=== PATIENT | male | born 1960 | race Caucasian/White ===

== ENCOUNTER → 2023-05-26 | Outpatient (CLI) | payer OTHER | END | disposition home or self-care (01) | LOC: WOUNDCARE 11:06 | PROVIDERS: ATTEND Nurse Practitioner Family | DX: L89.153 Pressure ulcer of sacral region, stage 3 (principal); L98.9 Disorder of the skin and subcutaneous tissue, unspecified; E11.39 Type 2 diabetes mellitus with other diabetic ophthalmic complication; H42 Glaucoma in diseases classified elsewhere; G82.20 Paraplegia, unspecified; M62.3 Immobility syndrome (paraplegic); Z87.891 Personal history of nicotine dependence; Z98.49 Cataract extraction status, unspecified eye ==

== ENCOUNTER → 2023-06-15 | Outpatient (CLI) | payer OTHER | END | disposition home or self-care (01) | LOC: CARD 06-13 15:00 → WOUNDCARE 01:42 → CARD 12:00 → WOUNDCARE 12:00 | PROVIDERS: ATTEND Nurse Practitioner Family | DX: L89.153 Pressure ulcer of sacral region, stage 3 (principal); L98.9 Disorder of the skin and subcutaneous tissue, unspecified; E11.39 Type 2 diabetes mellitus with other diabetic ophthalmic complication; H42 Glaucoma in diseases classified elsewhere; G82.20 Paraplegia, unspecified; M62.3 Immobility syndrome (paraplegic); M19.90 Unspecified osteoarthritis, unspecified site; Z87.891 Personal history of nicotine dependence; Z98.49 Cataract extraction status, unspecified eye ==

== ENCOUNTER → 2023-07-07 | Outpatient (CLI) | payer OTHER, MEDICAID | END | disposition home or self-care (01) | LOC: WOUNDCARE 06-29 00:45 | PROVIDERS: ATTEND Nurse Practitioner Family | DX: L89.153 Pressure ulcer of sacral region, stage 3 (principal); E11.622 Type 2 diabetes mellitus with other skin ulcer; L98.491 Non-pressure chronic ulcer of skin of other sites limited to breakdown of skin; L98.9 Disorder of the skin and subcutaneous tissue, unspecified; E11.39 Type 2 diabetes mellitus with other diabetic ophthalmic complication; H40.9 Unspecified glaucoma; G82.20 Paraplegia, unspecified; M62.3 Immobility syndrome (paraplegic); M19.90 Unspecified osteoarthritis, unspecified site; Z98.49 Cataract extraction status, unspecified eye; Z87.891 Personal history of nicotine dependence; Z79.4 Long term (current) use of insulin ==

== ENCOUNTER → 2023-07-25 | Outpatient (CLI) | payer OTHER, MEDICAID | END | disposition home or self-care (01) | LOC: WOUNDCARE 01:55 | PROVIDERS: ATTEND Nurse Practitioner Family | DX: L89.153 Pressure ulcer of sacral region, stage 3 (principal); L98.9 Disorder of the skin and subcutaneous tissue, unspecified; G82.20 Paraplegia, unspecified; M62.3 Immobility syndrome (paraplegic); E11.39 Type 2 diabetes mellitus with other diabetic ophthalmic complication; H42 Glaucoma in diseases classified elsewhere; M19.90 Unspecified osteoarthritis, unspecified site; Z87.891 Personal history of nicotine dependence; Z98.49 Cataract extraction status, unspecified eye ==

== ENCOUNTER → 2023-08-10 | Outpatient (CLI) | payer OTHER, MEDICAID | LOC: WOUNDCARE 02:01 | PROVIDERS: ATTEND Nurse Practitioner Family | DX: L89.153 Pressure ulcer of sacral region, stage 3 (principal); L98.9 Disorder of the skin and subcutaneous tissue, unspecified; G82.20 Paraplegia, unspecified; M62.3 Immobility syndrome (paraplegic); E11.39 Type 2 diabetes mellitus with other diabetic ophthalmic complication; H40.9 Unspecified glaucoma; M19.90 Unspecified osteoarthritis, unspecified site; Z98.49 Cataract extraction status, unspecified eye; Z87.891 Personal history of nicotine dependence; Z79.4 Long term (current) use of insulin ==

== ENCOUNTER → 2023-08-22 | Outpatient (CLI) | payer OTHER, MEDICAID | END | disposition home or self-care (01) | LOC: WOUNDCARE 02:27 | PROVIDERS: ATTEND Nurse Practitioner Family | DX: L89.153 Pressure ulcer of sacral region, stage 3 (principal); L98.9 Disorder of the skin and subcutaneous tissue, unspecified; E11.39 Type 2 diabetes mellitus with other diabetic ophthalmic complication; H42 Glaucoma in diseases classified elsewhere; G82.20 Paraplegia, unspecified; M62.3 Immobility syndrome (paraplegic); M19.90 Unspecified osteoarthritis, unspecified site; Z87.891 Personal history of nicotine dependence; Z98.49 Cataract extraction status, unspecified eye ==

== ENCOUNTER → 2023-09-12 | Outpatient (CLI) | payer OTHER, MEDICAID | END | disposition home or self-care (01) | LOC: WOUNDCARE 01:48 | PROVIDERS: ATTEND Nurse Practitioner Family | DX: L89.153 Pressure ulcer of sacral region, stage 3 (principal); L98.9 Disorder of the skin and subcutaneous tissue, unspecified; E11.39 Type 2 diabetes mellitus with other diabetic ophthalmic complication; H42 Glaucoma in diseases classified elsewhere; G82.20 Paraplegia, unspecified; M62.3 Immobility syndrome (paraplegic); M19.90 Unspecified osteoarthritis, unspecified site; Z87.891 Personal history of nicotine dependence; Z79.4 Long term (current) use of insulin; Z79.84 Long term (current) use of oral hypoglycemic drugs; Z79.899 Other long term (current) drug therapy; Z98.49 Cataract extraction status, unspecified eye ==

== ENCOUNTER → 2023-09-20 | Outpatient (CLI) | payer OTHER, MEDICAID ==
[~2023-09-20] MED LIST: GADOTERATE MEGLUMINE 7.5 MMOL/15 ML VIAL IV ONE
== END | disposition home or self-care (01) ==
LOC: WOUNDCARE 03:38 → MRI 13:00 → WOUNDCARE 13:00
PROVIDERS: ATTEND Nurse Practitioner Family
DX: L89.153 Pressure ulcer of sacral region, stage 3 (principal); L98.9 Disorder of the skin and subcutaneous tissue, unspecified; G82.20 Paraplegia, unspecified; M62.3 Immobility syndrome (paraplegic); E11.39 Type 2 diabetes mellitus with other diabetic ophthalmic complication; H42 Glaucoma in diseases classified elsewhere; M19.90 Unspecified osteoarthritis, unspecified site; Z87.891 Personal history of nicotine dependence; Z98.49 Cataract extraction status, unspecified eye; Z79.4 Long term (current) use of insulin; Z79.84 Long term (current) use of oral hypoglycemic drugs; Z79.899 Other long term (current) drug therapy

== ENCOUNTER → 2023-10-10 | Outpatient (CLI) | payer OTHER, MEDICAID | END | disposition home or self-care (01) | LOC: WOUNDCARE 03:06 | PROVIDERS: ATTEND Nurse Practitioner Family | DX: L89.153 Pressure ulcer of sacral region, stage 3 (principal); L89.102 Pressure ulcer of unspecified part of back, stage 2; E11.622 Type 2 diabetes mellitus with other skin ulcer; L98.491 Non-pressure chronic ulcer of skin of other sites limited to breakdown of skin; E11.39 Type 2 diabetes mellitus with other diabetic ophthalmic complication; H42 Glaucoma in diseases classified elsewhere; E11.69 Type 2 diabetes mellitus with other specified complication; M86.9 Osteomyelitis, unspecified; M62.3 Immobility syndrome (paraplegic); M19.90 Unspecified osteoarthritis, unspecified site; G82.20 Paraplegia, unspecified; L98.9 Disorder of the skin and subcutaneous tissue, unspecified; Z87.891 Personal history of nicotine dependence; Z98.49 Cataract extraction status, unspecified eye; Z79.4 Long term (current) use of insulin; Z79.84 Long term (current) use of oral hypoglycemic drugs; Z79.899 Other long term (current) drug therapy ==

== ENCOUNTER → 2023-10-17 | Outpatient (CLI) | payer OTHER, MEDICAID | END | disposition home or self-care (01) | LOC: WOUNDCARE 00:49 | PROVIDERS: ATTEND Nurse Practitioner Family | DX: L89.153 Pressure ulcer of sacral region, stage 3 (principal); L89.102 Pressure ulcer of unspecified part of back, stage 2; E11.622 Type 2 diabetes mellitus with other skin ulcer; L98.491 Non-pressure chronic ulcer of skin of other sites limited to breakdown of skin; E11.39 Type 2 diabetes mellitus with other diabetic ophthalmic complication; H42 Glaucoma in diseases classified elsewhere; E11.69 Type 2 diabetes mellitus with other specified complication; M86.68 Other chronic osteomyelitis, other site; M62.3 Immobility syndrome (paraplegic); M19.90 Unspecified osteoarthritis, unspecified site; G82.20 Paraplegia, unspecified; L98.9 Disorder of the skin and subcutaneous tissue, unspecified; Z87.891 Personal history of nicotine dependence; Z98.49 Cataract extraction status, unspecified eye; Z79.4 Long term (current) use of insulin; Z79.84 Long term (current) use of oral hypoglycemic drugs; Z79.899 Other long term (current) drug therapy ==

== ENCOUNTER → 2023-11-14 | Outpatient (CLI) | payer OTHER, MEDICAID ==
[~2023-11-14] MED LIST changes: +FLOMAX0.4 MG PO; -GADOTERATE MEGLUMINE 7.5 MMOL/15 ML VIAL IV ONE; +HEPARIN SODIUM 300 UNITS/3 ML SYR IV SCH; +JARDIANCE25 MG PO; +METFORMIN XR500 MG PO; +MIDODRINE HCL10 MG PO; +MOUNJARO2.5 MG/0.1 SQ; +NATURE'S BLEND F1 MG PO; +PROTONIX TR40 MG PO; +SEROQUEL25 MG PO; +TRESIBA FL100 UNIT/1 SQ; +Vancomycin Hydrochloride 1,000 MG in SODIUM CHLORIDE 0.9% 250 ML IV ONE; +Vancomycin Hydrochloride 250 ML IV ONE; +XARE20MG PO
[2023-11-14 11:02] VITALS: BP 145/71
== END | disposition home or self-care (01) ==
LOC: PICC 08:44
PROVIDERS: ATTEND Nurse Practitioner Family
DX: E11.69 Type 2 diabetes mellitus with other specified complication (principal); M86.68 Other chronic osteomyelitis, other site; Z87.891 Personal history of nicotine dependence

== ENCOUNTER → 2023-11-22 | Outpatient (CLI) | payer OTHER, MEDICAID ==
[~2023-11-22] MED LIST changes: -HEPARIN SODIUM 300 UNITS/3 ML SYR IV SCH; -Vancomycin Hydrochloride 1,000 MG in SODIUM CHLORIDE 0.9% 250 ML IV ONE; -Vancomycin Hydrochloride 250 ML IV ONE
== END | disposition home or self-care (01) ==
LOC: WOUNDCARE 01:31
PROVIDERS: ATTEND Nurse Practitioner Family
DX: L89.153 Pressure ulcer of sacral region, stage 3 (principal); L89.102 Pressure ulcer of unspecified part of back, stage 2; E11.622 Type 2 diabetes mellitus with other skin ulcer; L98.491 Non-pressure chronic ulcer of skin of other sites limited to breakdown of skin; L98.9 Disorder of the skin and subcutaneous tissue, unspecified; E11.39 Type 2 diabetes mellitus with other diabetic ophthalmic complication; H42 Glaucoma in diseases classified elsewhere; E11.69 Type 2 diabetes mellitus with other specified complication; M86.68 Other chronic osteomyelitis, other site; B95.2 Enterococcus as the cause of diseases classified elsewhere; M62.3 Immobility syndrome (paraplegic); M19.90 Unspecified osteoarthritis, unspecified site; G82.20 Paraplegia, unspecified; Z87.891 Personal history of nicotine dependence; Z98.49 Cataract extraction status, unspecified eye; Z79.4 Long term (current) use of insulin; Z79.84 Long term (current) use of oral hypoglycemic drugs; Z79.899 Other long term (current) drug therapy

== ENCOUNTER → 2023-12-05 | Outpatient (CLI) | payer OTHER, MEDICAID | END | disposition home or self-care (01) | LOC: WOUNDCARE 01:12 | PROVIDERS: ATTEND Nurse Practitioner Family | DX: M86.68 Other chronic osteomyelitis, other site (principal); E11.69 Type 2 diabetes mellitus with other specified complication; L89.153 Pressure ulcer of sacral region, stage 3; E11.622 Type 2 diabetes mellitus with other skin ulcer; L98.491 Non-pressure chronic ulcer of skin of other sites limited to breakdown of skin; L98.9 Disorder of the skin and subcutaneous tissue, unspecified; E11.39 Type 2 diabetes mellitus with other diabetic ophthalmic complication; H42 Glaucoma in diseases classified elsewhere; B95.2 Enterococcus as the cause of diseases classified elsewhere; M62.3 Immobility syndrome (paraplegic); M19.90 Unspecified osteoarthritis, unspecified site; G82.20 Paraplegia, unspecified; Z87.891 Personal history of nicotine dependence; Z98.49 Cataract extraction status, unspecified eye; Z79.4 Long term (current) use of insulin; Z79.84 Long term (current) use of oral hypoglycemic drugs; Z79.899 Other long term (current) drug therapy ==

== ENCOUNTER → 2023-12-06 | Outpatient (CLI) | payer OTHER, MEDICAID | END | disposition home or self-care (01) | LOC: WOUNDCARE 02:22 | PROVIDERS: ATTEND Nurse Practitioner Family | DX: M86.68 Other chronic osteomyelitis, other site (principal); E11.69 Type 2 diabetes mellitus with other specified complication; L89.153 Pressure ulcer of sacral region, stage 3; L89.102 Pressure ulcer of unspecified part of back, stage 2; E11.622 Type 2 diabetes mellitus with other skin ulcer; L98.491 Non-pressure chronic ulcer of skin of other sites limited to breakdown of skin; L98.9 Disorder of the skin and subcutaneous tissue, unspecified; E11.39 Type 2 diabetes mellitus with other diabetic ophthalmic complication; H42 Glaucoma in diseases classified elsewhere; B95.2 Enterococcus as the cause of diseases classified elsewhere; M62.3 Immobility syndrome (paraplegic); M19.90 Unspecified osteoarthritis, unspecified site; G82.20 Paraplegia, unspecified; Z87.891 Personal history of nicotine dependence; Z98.49 Cataract extraction status, unspecified eye; Z79.4 Long term (current) use of insulin; Z79.84 Long term (current) use of oral hypoglycemic drugs; Z79.899 Other long term (current) drug therapy ==

== ENCOUNTER → 2023-12-07 | Outpatient (CLI) | payer OTHER, MEDICAID | END | disposition home or self-care (01) | LOC: WOUNDCARE 01:43 | PROVIDERS: ATTEND Nurse Practitioner Family | DX: M86.68 Other chronic osteomyelitis, other site (principal); E11.69 Type 2 diabetes mellitus with other specified complication; L89.153 Pressure ulcer of sacral region, stage 3; E11.622 Type 2 diabetes mellitus with other skin ulcer; L98.491 Non-pressure chronic ulcer of skin of other sites limited to breakdown of skin; L98.9 Disorder of the skin and subcutaneous tissue, unspecified; E11.39 Type 2 diabetes mellitus with other diabetic ophthalmic complication; H42 Glaucoma in diseases classified elsewhere; B95.2 Enterococcus as the cause of diseases classified elsewhere; M62.3 Immobility syndrome (paraplegic); M19.90 Unspecified osteoarthritis, unspecified site; G82.20 Paraplegia, unspecified; Z87.891 Personal history of nicotine dependence; Z98.49 Cataract extraction status, unspecified eye; Z79.4 Long term (current) use of insulin; Z79.84 Long term (current) use of oral hypoglycemic drugs; Z79.899 Other long term (current) drug therapy ==

== ENCOUNTER → 2023-12-11 | Outpatient (CLI) | payer OTHER, MEDICAID | END | disposition home or self-care (01) | LOC: WOUNDCARE 01:29 | PROVIDERS: ATTEND Nurse Practitioner Family | DX: M86.68 Other chronic osteomyelitis, other site (principal); E11.69 Type 2 diabetes mellitus with other specified complication; L89.153 Pressure ulcer of sacral region, stage 3; E11.622 Type 2 diabetes mellitus with other skin ulcer; L98.491 Non-pressure chronic ulcer of skin of other sites limited to breakdown of skin; L98.9 Disorder of the skin and subcutaneous tissue, unspecified; E11.39 Type 2 diabetes mellitus with other diabetic ophthalmic complication; H42 Glaucoma in diseases classified elsewhere; B95.2 Enterococcus as the cause of diseases classified elsewhere; M62.3 Immobility syndrome (paraplegic); M19.90 Unspecified osteoarthritis, unspecified site; G82.20 Paraplegia, unspecified; Z87.891 Personal history of nicotine dependence; Z98.49 Cataract extraction status, unspecified eye; Z79.4 Long term (current) use of insulin; Z79.84 Long term (current) use of oral hypoglycemic drugs; Z79.899 Other long term (current) drug therapy ==

== ENCOUNTER → 2023-12-15 | Outpatient (CLI) | payer OTHER, MEDICAID | END | disposition home or self-care (01) | LOC: WOUNDCARE 01:41 | PROVIDERS: ATTEND Nurse Practitioner Family | DX: M86.68 Other chronic osteomyelitis, other site (principal); E11.69 Type 2 diabetes mellitus with other specified complication; L89.153 Pressure ulcer of sacral region, stage 3; L89.102 Pressure ulcer of unspecified part of back, stage 2; B95.2 Enterococcus as the cause of diseases classified elsewhere; L98.9 Disorder of the skin and subcutaneous tissue, unspecified; G82.20 Paraplegia, unspecified; M62.3 Immobility syndrome (paraplegic); Z98.49 Cataract extraction status, unspecified eye; Z87.891 Personal history of nicotine dependence; Z79.84 Long term (current) use of oral hypoglycemic drugs; Z79.4 Long term (current) use of insulin ==

== ENCOUNTER → 2023-12-19 | Outpatient (CLI) | payer OTHER, MEDICAID | END | disposition home or self-care (01) | LOC: WOUNDCARE 12-04 00:36 | PROVIDERS: ATTEND Nurse Practitioner Family | DX: M86.68 Other chronic osteomyelitis, other site (principal); E11.69 Type 2 diabetes mellitus with other specified complication; L89.153 Pressure ulcer of sacral region, stage 3; L89.102 Pressure ulcer of unspecified part of back, stage 2; B95.2 Enterococcus as the cause of diseases classified elsewhere; L98.9 Disorder of the skin and subcutaneous tissue, unspecified; G82.20 Paraplegia, unspecified; M62.3 Immobility syndrome (paraplegic); Z98.49 Cataract extraction status, unspecified eye; Z87.891 Personal history of nicotine dependence; Z79.84 Long term (current) use of oral hypoglycemic drugs; Z79.4 Long term (current) use of insulin ==

== ENCOUNTER → 2023-12-20 | Outpatient (CLI) | payer OTHER, MEDICAID ==
[~2023-12-20] MED LIST changes: +Alteplase, Recombinant 2 MG/2 ML VIAL IV ONE
== END | disposition home or self-care (01) ==
LOC: WOUNDCARE 02:50
PROVIDERS: ATTEND Nurse Practitioner Family
DX: M86.68 Other chronic osteomyelitis, other site (principal); E11.69 Type 2 diabetes mellitus with other specified complication; L89.153 Pressure ulcer of sacral region, stage 3; L89.102 Pressure ulcer of unspecified part of back, stage 2; L98.9 Disorder of the skin and subcutaneous tissue, unspecified; B95.2 Enterococcus as the cause of diseases classified elsewhere; G82.20 Paraplegia, unspecified; M62.3 Immobility syndrome (paraplegic); Z98.49 Cataract extraction status, unspecified eye; Z87.891 Personal history of nicotine dependence; Z79.84 Long term (current) use of oral hypoglycemic drugs; Z79.4 Long term (current) use of insulin

== ENCOUNTER → 2023-12-21 | Outpatient (CLI) | payer OTHER, MEDICAID ==
[~2023-12-21] MED LIST changes: -Alteplase, Recombinant 2 MG/2 ML VIAL IV ONE
== END | disposition home or self-care (01) ==
LOC: WOUNDCARE 01:43
PROVIDERS: ATTEND Nurse Practitioner Family
DX: M86.68 Other chronic osteomyelitis, other site (principal); E11.69 Type 2 diabetes mellitus with other specified complication; E11.622 Type 2 diabetes mellitus with other skin ulcer; L98.491 Non-pressure chronic ulcer of skin of other sites limited to breakdown of skin; L89.153 Pressure ulcer of sacral region, stage 3; L98.9 Disorder of the skin and subcutaneous tissue, unspecified; E11.39 Type 2 diabetes mellitus with other diabetic ophthalmic complication; H42 Glaucoma in diseases classified elsewhere; B95.2 Enterococcus as the cause of diseases classified elsewhere; M19.90 Unspecified osteoarthritis, unspecified site; G82.20 Paraplegia, unspecified; M62.3 Immobility syndrome (paraplegic); Z87.891 Personal history of nicotine dependence; Z98.49 Cataract extraction status, unspecified eye; Z79.4 Long term (current) use of insulin; Z79.84 Long term (current) use of oral hypoglycemic drugs; Z79.899 Other long term (current) drug therapy

== ENCOUNTER → 2023-12-22 | Outpatient (CLI) | payer OTHER, MEDICAID | END | disposition home or self-care (01) | LOC: WOUNDCARE 02:54 | PROVIDERS: ATTEND Nurse Practitioner Family | DX: M86.68 Other chronic osteomyelitis, other site (principal); E11.69 Type 2 diabetes mellitus with other specified complication; E11.622 Type 2 diabetes mellitus with other skin ulcer; L98.491 Non-pressure chronic ulcer of skin of other sites limited to breakdown of skin; L89.153 Pressure ulcer of sacral region, stage 3; L89.102 Pressure ulcer of unspecified part of back, stage 2; L98.9 Disorder of the skin and subcutaneous tissue, unspecified; E11.39 Type 2 diabetes mellitus with other diabetic ophthalmic complication; H42 Glaucoma in diseases classified elsewhere; B95.2 Enterococcus as the cause of diseases classified elsewhere; M19.90 Unspecified osteoarthritis, unspecified site; G82.20 Paraplegia, unspecified; M62.3 Immobility syndrome (paraplegic); Z87.891 Personal history of nicotine dependence; Z98.49 Cataract extraction status, unspecified eye; Z79.4 Long term (current) use of insulin; Z79.84 Long term (current) use of oral hypoglycemic drugs; Z79.899 Other long term (current) drug therapy ==

== ENCOUNTER → 2023-12-25 | Outpatient (CLI) | payer OTHER, MEDICAID | END | disposition home or self-care (01) | LOC: WOUNDCARE 02:53 | PROVIDERS: ATTEND Nurse Practitioner Family | DX: M86.68 Other chronic osteomyelitis, other site (principal); E11.69 Type 2 diabetes mellitus with other specified complication; E11.622 Type 2 diabetes mellitus with other skin ulcer; L98.491 Non-pressure chronic ulcer of skin of other sites limited to breakdown of skin; L89.153 Pressure ulcer of sacral region, stage 3; L98.9 Disorder of the skin and subcutaneous tissue, unspecified; E11.39 Type 2 diabetes mellitus with other diabetic ophthalmic complication; H42 Glaucoma in diseases classified elsewhere; B95.2 Enterococcus as the cause of diseases classified elsewhere; M19.90 Unspecified osteoarthritis, unspecified site; G82.20 Paraplegia, unspecified; M62.3 Immobility syndrome (paraplegic); Z87.891 Personal history of nicotine dependence; Z98.49 Cataract extraction status, unspecified eye; Z79.4 Long term (current) use of insulin; Z79.84 Long term (current) use of oral hypoglycemic drugs; Z79.899 Other long term (current) drug therapy ==

== ENCOUNTER → 2023-12-26 | Outpatient (CLI) | payer OTHER, MEDICAID | END | disposition home or self-care (01) | LOC: WOUNDCARE 03:08 | PROVIDERS: ATTEND Nurse Practitioner Family | DX: M86.68 Other chronic osteomyelitis, other site (principal); E11.69 Type 2 diabetes mellitus with other specified complication; E11.622 Type 2 diabetes mellitus with other skin ulcer; L98.491 Non-pressure chronic ulcer of skin of other sites limited to breakdown of skin; L89.153 Pressure ulcer of sacral region, stage 3; L98.9 Disorder of the skin and subcutaneous tissue, unspecified; E11.39 Type 2 diabetes mellitus with other diabetic ophthalmic complication; H42 Glaucoma in diseases classified elsewhere; B95.2 Enterococcus as the cause of diseases classified elsewhere; M19.90 Unspecified osteoarthritis, unspecified site; G82.20 Paraplegia, unspecified; M62.3 Immobility syndrome (paraplegic); Z87.891 Personal history of nicotine dependence; Z98.49 Cataract extraction status, unspecified eye; Z79.4 Long term (current) use of insulin; Z79.84 Long term (current) use of oral hypoglycemic drugs; Z79.899 Other long term (current) drug therapy ==

== ENCOUNTER → 2023-12-27 | Outpatient (CLI) | payer OTHER, MEDICAID | END | disposition home or self-care (01) | LOC: WOUNDCARE 03:09 | PROVIDERS: ATTEND Nurse Practitioner Family | DX: M86.68 Other chronic osteomyelitis, other site (principal); E11.69 Type 2 diabetes mellitus with other specified complication; E11.622 Type 2 diabetes mellitus with other skin ulcer; L98.491 Non-pressure chronic ulcer of skin of other sites limited to breakdown of skin; L89.153 Pressure ulcer of sacral region, stage 3; L89.102 Pressure ulcer of unspecified part of back, stage 2; L98.9 Disorder of the skin and subcutaneous tissue, unspecified; E11.39 Type 2 diabetes mellitus with other diabetic ophthalmic complication; H42 Glaucoma in diseases classified elsewhere; B95.2 Enterococcus as the cause of diseases classified elsewhere; M19.90 Unspecified osteoarthritis, unspecified site; G82.20 Paraplegia, unspecified; M62.3 Immobility syndrome (paraplegic); Z87.891 Personal history of nicotine dependence; Z98.49 Cataract extraction status, unspecified eye; Z79.4 Long term (current) use of insulin; Z79.84 Long term (current) use of oral hypoglycemic drugs; Z79.899 Other long term (current) drug therapy ==

== ENCOUNTER → 2024-01-02 | Outpatient (CLI) | payer OTHER, MEDICAID | END | disposition home or self-care (01) | LOC: WOUNDCARE 00:06 | PROVIDERS: ATTEND Student in an Organized Health Care Education/Training Program | DX: M86.68 Other chronic osteomyelitis, other site (principal); E11.69 Type 2 diabetes mellitus with other specified complication; E11.622 Type 2 diabetes mellitus with other skin ulcer; L98.491 Non-pressure chronic ulcer of skin of other sites limited to breakdown of skin; L89.153 Pressure ulcer of sacral region, stage 3; L98.9 Disorder of the skin and subcutaneous tissue, unspecified; E11.39 Type 2 diabetes mellitus with other diabetic ophthalmic complication; H42 Glaucoma in diseases classified elsewhere; M19.90 Unspecified osteoarthritis, unspecified site; G82.20 Paraplegia, unspecified; B95.2 Enterococcus as the cause of diseases classified elsewhere; M62.3 Immobility syndrome (paraplegic); Z87.891 Personal history of nicotine dependence; Z98.49 Cataract extraction status, unspecified eye; Z79.4 Long term (current) use of insulin; Z79.84 Long term (current) use of oral hypoglycemic drugs; Z79.899 Other long term (current) drug therapy ==

== ENCOUNTER → 2024-01-03 | Outpatient (CLI) | payer OTHER, MEDICAID | END | disposition home or self-care (01) | LOC: WOUNDCARE 02:26 | PROVIDERS: ATTEND Student in an Organized Health Care Education/Training Program | DX: M86.68 Other chronic osteomyelitis, other site (principal); E11.69 Type 2 diabetes mellitus with other specified complication; E11.622 Type 2 diabetes mellitus with other skin ulcer; L98.491 Non-pressure chronic ulcer of skin of other sites limited to breakdown of skin; L89.153 Pressure ulcer of sacral region, stage 3; L89.102 Pressure ulcer of unspecified part of back, stage 2; L98.9 Disorder of the skin and subcutaneous tissue, unspecified; E11.39 Type 2 diabetes mellitus with other diabetic ophthalmic complication; H42 Glaucoma in diseases classified elsewhere; M19.90 Unspecified osteoarthritis, unspecified site; G82.20 Paraplegia, unspecified; B95.2 Enterococcus as the cause of diseases classified elsewhere; M62.3 Immobility syndrome (paraplegic); Z87.891 Personal history of nicotine dependence; Z98.49 Cataract extraction status, unspecified eye; Z79.4 Long term (current) use of insulin; Z79.84 Long term (current) use of oral hypoglycemic drugs; Z79.899 Other long term (current) drug therapy ==

== ENCOUNTER → 2024-01-04 | Outpatient (CLI) | payer OTHER, MEDICAID | END | disposition home or self-care (01) | LOC: WOUNDCARE 03:38 | PROVIDERS: ATTEND Nurse Practitioner Family | DX: M86.68 Other chronic osteomyelitis, other site (principal); E11.69 Type 2 diabetes mellitus with other specified complication; L89.153 Pressure ulcer of sacral region, stage 3; E11.622 Type 2 diabetes mellitus with other skin ulcer; L98.491 Non-pressure chronic ulcer of skin of other sites limited to breakdown of skin; L98.9 Disorder of the skin and subcutaneous tissue, unspecified; E11.39 Type 2 diabetes mellitus with other diabetic ophthalmic complication; H42 Glaucoma in diseases classified elsewhere; M19.90 Unspecified osteoarthritis, unspecified site; G82.20 Paraplegia, unspecified; B95.2 Enterococcus as the cause of diseases classified elsewhere; M62.3 Immobility syndrome (paraplegic); Z87.891 Personal history of nicotine dependence; Z98.49 Cataract extraction status, unspecified eye; Z79.4 Long term (current) use of insulin; Z79.84 Long term (current) use of oral hypoglycemic drugs; Z79.899 Other long term (current) drug therapy ==

== ENCOUNTER → 2024-01-16 | Outpatient (CLI) | payer OTHER, MEDICAID | END | disposition home or self-care (01) | LOC: WOUNDCARE 02:52 | PROVIDERS: ATTEND Student in an Organized Health Care Education/Training Program | DX: M86.68 Other chronic osteomyelitis, other site (principal); E11.69 Type 2 diabetes mellitus with other specified complication; L89.153 Pressure ulcer of sacral region, stage 3; E11.622 Type 2 diabetes mellitus with other skin ulcer; L98.491 Non-pressure chronic ulcer of skin of other sites limited to breakdown of skin; L98.9 Disorder of the skin and subcutaneous tissue, unspecified; E11.39 Type 2 diabetes mellitus with other diabetic ophthalmic complication; H42 Glaucoma in diseases classified elsewhere; M19.90 Unspecified osteoarthritis, unspecified site; G82.20 Paraplegia, unspecified; B95.2 Enterococcus as the cause of diseases classified elsewhere; M62.3 Immobility syndrome (paraplegic); Z87.891 Personal history of nicotine dependence; Z98.49 Cataract extraction status, unspecified eye; Z79.4 Long term (current) use of insulin; Z79.84 Long term (current) use of oral hypoglycemic drugs; Z79.899 Other long term (current) drug therapy ==

== ENCOUNTER → 2024-01-17 | Outpatient (CLI) | payer OTHER, MEDICAID | END | disposition home or self-care (01) | LOC: WOUNDCARE 02:03 | PROVIDERS: ATTEND Student in an Organized Health Care Education/Training Program | DX: M86.68 Other chronic osteomyelitis, other site (principal); E11.69 Type 2 diabetes mellitus with other specified complication; L89.153 Pressure ulcer of sacral region, stage 3; E11.622 Type 2 diabetes mellitus with other skin ulcer; L98.491 Non-pressure chronic ulcer of skin of other sites limited to breakdown of skin; L98.9 Disorder of the skin and subcutaneous tissue, unspecified; E11.39 Type 2 diabetes mellitus with other diabetic ophthalmic complication; H42 Glaucoma in diseases classified elsewhere; M19.90 Unspecified osteoarthritis, unspecified site; G82.20 Paraplegia, unspecified; B95.2 Enterococcus as the cause of diseases classified elsewhere; M62.3 Immobility syndrome (paraplegic); Z87.891 Personal history of nicotine dependence; Z98.49 Cataract extraction status, unspecified eye; Z79.4 Long term (current) use of insulin; Z79.84 Long term (current) use of oral hypoglycemic drugs; Z79.899 Other long term (current) drug therapy ==

== ENCOUNTER → 2024-01-18 | Outpatient (CLI) | payer OTHER, MEDICAID | END | disposition home or self-care (01) | LOC: WOUNDCARE 03:02 | PROVIDERS: ATTEND Student in an Organized Health Care Education/Training Program | DX: M86.68 Other chronic osteomyelitis, other site (principal); E11.69 Type 2 diabetes mellitus with other specified complication; L89.153 Pressure ulcer of sacral region, stage 3; L89.102 Pressure ulcer of unspecified part of back, stage 2; E11.622 Type 2 diabetes mellitus with other skin ulcer; L98.491 Non-pressure chronic ulcer of skin of other sites limited to breakdown of skin; L98.9 Disorder of the skin and subcutaneous tissue, unspecified; E11.39 Type 2 diabetes mellitus with other diabetic ophthalmic complication; H42 Glaucoma in diseases classified elsewhere; G82.20 Paraplegia, unspecified; M62.3 Immobility syndrome (paraplegic); B95.2 Enterococcus as the cause of diseases classified elsewhere; M19.90 Unspecified osteoarthritis, unspecified site; Z87.891 Personal history of nicotine dependence; Z98.49 Cataract extraction status, unspecified eye; Z79.4 Long term (current) use of insulin; Z79.84 Long term (current) use of oral hypoglycemic drugs; Z79.899 Other long term (current) drug therapy ==

== ENCOUNTER → 2024-01-19 | Outpatient (CLI) | payer OTHER, MEDICAID | END | disposition home or self-care (01) | LOC: WOUNDCARE 01:50 | PROVIDERS: ATTEND Student in an Organized Health Care Education/Training Program | DX: M86.68 Other chronic osteomyelitis, other site (principal); E11.69 Type 2 diabetes mellitus with other specified complication; L89.153 Pressure ulcer of sacral region, stage 3; E11.622 Type 2 diabetes mellitus with other skin ulcer; L98.491 Non-pressure chronic ulcer of skin of other sites limited to breakdown of skin; L98.9 Disorder of the skin and subcutaneous tissue, unspecified; E11.39 Type 2 diabetes mellitus with other diabetic ophthalmic complication; H42 Glaucoma in diseases classified elsewhere; G82.20 Paraplegia, unspecified; M19.90 Unspecified osteoarthritis, unspecified site; M62.3 Immobility syndrome (paraplegic); B95.2 Enterococcus as the cause of diseases classified elsewhere; Z87.891 Personal history of nicotine dependence; Z98.49 Cataract extraction status, unspecified eye; Z98.890 Other specified postprocedural states; Z79.4 Long term (current) use of insulin; Z79.84 Long term (current) use of oral hypoglycemic drugs; Z79.899 Other long term (current) drug therapy ==

== ENCOUNTER → 2024-01-24 | Outpatient (CLI) | payer OTHER, MEDICAID | LOC: WOUNDCARE 02:32 | PROVIDERS: ATTEND Nurse Practitioner Family | DX: L89.153 Pressure ulcer of sacral region, stage 3 (principal); L89.102 Pressure ulcer of unspecified part of back, stage 2; E11.69 Type 2 diabetes mellitus with other specified complication; M86.68 Other chronic osteomyelitis, other site; E11.622 Type 2 diabetes mellitus with other skin ulcer; L98.491 Non-pressure chronic ulcer of skin of other sites limited to breakdown of skin; L98.9 Disorder of the skin and subcutaneous tissue, unspecified; E11.39 Type 2 diabetes mellitus with other diabetic ophthalmic complication; H42 Glaucoma in diseases classified elsewhere; G82.20 Paraplegia, unspecified; M19.90 Unspecified osteoarthritis, unspecified site; M62.3 Immobility syndrome (paraplegic); B95.2 Enterococcus as the cause of diseases classified elsewhere; Z87.891 Personal history of nicotine dependence; Z98.49 Cataract extraction status, unspecified eye; Z79.4 Long term (current) use of insulin; Z79.84 Long term (current) use of oral hypoglycemic drugs; Z79.899 Other long term (current) drug therapy ==

== ENCOUNTER → 2024-01-31 | Outpatient (CLI) | payer OTHER, MEDICAID | END | disposition home or self-care (01) | LOC: WOUNDCARE 00:33 | PROVIDERS: ATTEND Nurse Practitioner Family | DX: M86.68 Other chronic osteomyelitis, other site (principal); E11.69 Type 2 diabetes mellitus with other specified complication; L89.153 Pressure ulcer of sacral region, stage 3; E11.622 Type 2 diabetes mellitus with other skin ulcer; L98.491 Non-pressure chronic ulcer of skin of other sites limited to breakdown of skin; L98.9 Disorder of the skin and subcutaneous tissue, unspecified; E11.39 Type 2 diabetes mellitus with other diabetic ophthalmic complication; H42 Glaucoma in diseases classified elsewhere; G82.20 Paraplegia, unspecified; M19.90 Unspecified osteoarthritis, unspecified site; M62.3 Immobility syndrome (paraplegic); B95.2 Enterococcus as the cause of diseases classified elsewhere; Z87.891 Personal history of nicotine dependence; Z98.49 Cataract extraction status, unspecified eye; Z79.4 Long term (current) use of insulin; Z79.84 Long term (current) use of oral hypoglycemic drugs; Z79.899 Other long term (current) drug therapy ==

== ENCOUNTER → 2024-02-01 | Outpatient (CLI) | payer OTHER, MEDICAID | END | disposition home or self-care (01) | LOC: WOUNDCARE 00:59 | PROVIDERS: ATTEND Nurse Practitioner Family | DX: M86.68 Other chronic osteomyelitis, other site (principal); E11.69 Type 2 diabetes mellitus with other specified complication; L89.153 Pressure ulcer of sacral region, stage 3; L89.102 Pressure ulcer of unspecified part of back, stage 2; E11.622 Type 2 diabetes mellitus with other skin ulcer; L98.491 Non-pressure chronic ulcer of skin of other sites limited to breakdown of skin; L98.9 Disorder of the skin and subcutaneous tissue, unspecified; E11.39 Type 2 diabetes mellitus with other diabetic ophthalmic complication; H42 Glaucoma in diseases classified elsewhere; G82.20 Paraplegia, unspecified; M19.90 Unspecified osteoarthritis, unspecified site; M62.3 Immobility syndrome (paraplegic); B95.2 Enterococcus as the cause of diseases classified elsewhere; Z87.891 Personal history of nicotine dependence; Z98.49 Cataract extraction status, unspecified eye; Z79.4 Long term (current) use of insulin; Z79.84 Long term (current) use of oral hypoglycemic drugs; Z79.899 Other long term (current) drug therapy ==

== ENCOUNTER → 2024-02-08 | Outpatient (CLI) | payer OTHER, MEDICAID | END | disposition home or self-care (01) | LOC: WOUNDCARE 02:45 | PROVIDERS: ATTEND Nurse Practitioner Family | DX: M86.68 Other chronic osteomyelitis, other site (principal); E11.69 Type 2 diabetes mellitus with other specified complication; L89.153 Pressure ulcer of sacral region, stage 3; E11.622 Type 2 diabetes mellitus with other skin ulcer; L98.491 Non-pressure chronic ulcer of skin of other sites limited to breakdown of skin; L98.9 Disorder of the skin and subcutaneous tissue, unspecified; E11.39 Type 2 diabetes mellitus with other diabetic ophthalmic complication; H42 Glaucoma in diseases classified elsewhere; G82.20 Paraplegia, unspecified; M19.90 Unspecified osteoarthritis, unspecified site; M62.3 Immobility syndrome (paraplegic); B95.2 Enterococcus as the cause of diseases classified elsewhere; Z87.891 Personal history of nicotine dependence; Z98.49 Cataract extraction status, unspecified eye; Z79.4 Long term (current) use of insulin; Z79.84 Long term (current) use of oral hypoglycemic drugs; Z79.899 Other long term (current) drug therapy ==

== ENCOUNTER → 2024-02-09 | Outpatient (CLI) | payer OTHER, MEDICAID | END | disposition home or self-care (01) | LOC: WOUNDCARE 00:53 | PROVIDERS: ATTEND Student in an Organized Health Care Education/Training Program | DX: M86.68 Other chronic osteomyelitis, other site (principal); E11.69 Type 2 diabetes mellitus with other specified complication; L89.153 Pressure ulcer of sacral region, stage 3; E11.622 Type 2 diabetes mellitus with other skin ulcer; L98.491 Non-pressure chronic ulcer of skin of other sites limited to breakdown of skin; L98.9 Disorder of the skin and subcutaneous tissue, unspecified; E11.39 Type 2 diabetes mellitus with other diabetic ophthalmic complication; H42 Glaucoma in diseases classified elsewhere; G82.20 Paraplegia, unspecified; M19.90 Unspecified osteoarthritis, unspecified site; M62.3 Immobility syndrome (paraplegic); B95.2 Enterococcus as the cause of diseases classified elsewhere; Z87.891 Personal history of nicotine dependence; Z98.49 Cataract extraction status, unspecified eye; Z79.4 Long term (current) use of insulin; Z79.84 Long term (current) use of oral hypoglycemic drugs; Z79.899 Other long term (current) drug therapy ==

== ENCOUNTER → 2024-02-12 | Outpatient (CLI) | payer OTHER, MEDICAID | END | disposition home or self-care (01) | LOC: WOUNDCARE 00:48 | PROVIDERS: ATTEND Nurse Practitioner Family | DX: M86.68 Other chronic osteomyelitis, other site (principal); E11.69 Type 2 diabetes mellitus with other specified complication; L89.153 Pressure ulcer of sacral region, stage 3; E11.622 Type 2 diabetes mellitus with other skin ulcer; L98.491 Non-pressure chronic ulcer of skin of other sites limited to breakdown of skin; L98.9 Disorder of the skin and subcutaneous tissue, unspecified; E11.39 Type 2 diabetes mellitus with other diabetic ophthalmic complication; H42 Glaucoma in diseases classified elsewhere; G82.20 Paraplegia, unspecified; M19.90 Unspecified osteoarthritis, unspecified site; M62.3 Immobility syndrome (paraplegic); B95.2 Enterococcus as the cause of diseases classified elsewhere; Z87.891 Personal history of nicotine dependence; Z98.49 Cataract extraction status, unspecified eye; Z79.4 Long term (current) use of insulin; Z79.84 Long term (current) use of oral hypoglycemic drugs; Z79.899 Other long term (current) drug therapy ==

== ENCOUNTER → 2024-02-13 | Outpatient (CLI) | payer OTHER, MEDICAID | END | disposition home or self-care (01) | LOC: WOUNDCARE 01:50 | PROVIDERS: ATTEND Nurse Practitioner Family | DX: M86.68 Other chronic osteomyelitis, other site (principal); E11.69 Type 2 diabetes mellitus with other specified complication; L89.153 Pressure ulcer of sacral region, stage 3; E11.622 Type 2 diabetes mellitus with other skin ulcer; L98.491 Non-pressure chronic ulcer of skin of other sites limited to breakdown of skin; L98.9 Disorder of the skin and subcutaneous tissue, unspecified; E11.39 Type 2 diabetes mellitus with other diabetic ophthalmic complication; H42 Glaucoma in diseases classified elsewhere; G82.20 Paraplegia, unspecified; M19.90 Unspecified osteoarthritis, unspecified site; M62.3 Immobility syndrome (paraplegic); B95.2 Enterococcus as the cause of diseases classified elsewhere; Z87.891 Personal history of nicotine dependence; Z98.49 Cataract extraction status, unspecified eye; Z79.4 Long term (current) use of insulin; Z79.84 Long term (current) use of oral hypoglycemic drugs; Z79.899 Other long term (current) drug therapy ==

== ENCOUNTER → 2024-02-15 | Outpatient (CLI) | payer OTHER, MEDICAID | END | disposition home or self-care (01) | LOC: WOUNDCARE 03:56 | PROVIDERS: ATTEND Nurse Practitioner Family | DX: M86.68 Other chronic osteomyelitis, other site (principal); E11.69 Type 2 diabetes mellitus with other specified complication; L89.153 Pressure ulcer of sacral region, stage 3; E11.622 Type 2 diabetes mellitus with other skin ulcer; L98.491 Non-pressure chronic ulcer of skin of other sites limited to breakdown of skin; L98.9 Disorder of the skin and subcutaneous tissue, unspecified; E11.39 Type 2 diabetes mellitus with other diabetic ophthalmic complication; H42 Glaucoma in diseases classified elsewhere; G82.20 Paraplegia, unspecified; M19.90 Unspecified osteoarthritis, unspecified site; M62.3 Immobility syndrome (paraplegic); B95.2 Enterococcus as the cause of diseases classified elsewhere; Z87.891 Personal history of nicotine dependence; Z98.49 Cataract extraction status, unspecified eye; Z79.4 Long term (current) use of insulin; Z79.84 Long term (current) use of oral hypoglycemic drugs; Z79.899 Other long term (current) drug therapy ==

== ENCOUNTER → 2024-02-20 | Outpatient (CLI) | payer OTHER, MEDICAID | END | disposition home or self-care (01) | LOC: WOUNDCARE 02:30 | PROVIDERS: ATTEND Nurse Practitioner Family | DX: M86.68 Other chronic osteomyelitis, other site (principal); E11.69 Type 2 diabetes mellitus with other specified complication; L89.153 Pressure ulcer of sacral region, stage 3; E11.39 Type 2 diabetes mellitus with other diabetic ophthalmic complication; H42 Glaucoma in diseases classified elsewhere; B95.2 Enterococcus as the cause of diseases classified elsewhere; L98.9 Disorder of the skin and subcutaneous tissue, unspecified; G82.20 Paraplegia, unspecified; M62.3 Immobility syndrome (paraplegic); M19.90 Unspecified osteoarthritis, unspecified site; Z98.49 Cataract extraction status, unspecified eye; Z87.891 Personal history of nicotine dependence ==

== ENCOUNTER → 2024-02-22 | Outpatient (CLI) | payer OTHER, MEDICAID | END | disposition home or self-care (01) | LOC: WOUNDCARE 01:36 | PROVIDERS: ATTEND Nurse Practitioner Family | DX: M86.68 Other chronic osteomyelitis, other site (principal); E11.69 Type 2 diabetes mellitus with other specified complication; L89.153 Pressure ulcer of sacral region, stage 3; E11.622 Type 2 diabetes mellitus with other skin ulcer; L98.491 Non-pressure chronic ulcer of skin of other sites limited to breakdown of skin; L98.9 Disorder of the skin and subcutaneous tissue, unspecified; E11.39 Type 2 diabetes mellitus with other diabetic ophthalmic complication; H42 Glaucoma in diseases classified elsewhere; G82.20 Paraplegia, unspecified; M19.90 Unspecified osteoarthritis, unspecified site; M62.3 Immobility syndrome (paraplegic); B95.2 Enterococcus as the cause of diseases classified elsewhere; Z87.891 Personal history of nicotine dependence; Z98.49 Cataract extraction status, unspecified eye; Z79.4 Long term (current) use of insulin; Z79.84 Long term (current) use of oral hypoglycemic drugs; Z79.899 Other long term (current) drug therapy ==

== ENCOUNTER → 2024-02-23 | Outpatient (CLI) | payer OTHER, MEDICAID | END | disposition home or self-care (01) | LOC: WOUNDCARE 01:29 | PROVIDERS: ATTEND Nurse Practitioner Family | DX: M86.68 Other chronic osteomyelitis, other site (principal); E11.69 Type 2 diabetes mellitus with other specified complication; L89.153 Pressure ulcer of sacral region, stage 3; E11.622 Type 2 diabetes mellitus with other skin ulcer; L98.491 Non-pressure chronic ulcer of skin of other sites limited to breakdown of skin; L98.9 Disorder of the skin and subcutaneous tissue, unspecified; E11.39 Type 2 diabetes mellitus with other diabetic ophthalmic complication; H42 Glaucoma in diseases classified elsewhere; G82.20 Paraplegia, unspecified; M19.90 Unspecified osteoarthritis, unspecified site; M62.3 Immobility syndrome (paraplegic); B95.2 Enterococcus as the cause of diseases classified elsewhere; Z87.891 Personal history of nicotine dependence; Z98.49 Cataract extraction status, unspecified eye; Z79.4 Long term (current) use of insulin; Z79.84 Long term (current) use of oral hypoglycemic drugs; Z79.899 Other long term (current) drug therapy ==

== ENCOUNTER → 2024-03-29 | Outpatient (CLI) | payer OTHER, MEDICAID | END | disposition home or self-care (01) | LOC: WOUNDCARE 01:41 | PROVIDERS: ATTEND Nurse Practitioner Family | DX: L89.153 Pressure ulcer of sacral region, stage 3 (principal); E11.622 Type 2 diabetes mellitus with other skin ulcer; L98.491 Non-pressure chronic ulcer of skin of other sites limited to breakdown of skin; L98.9 Disorder of the skin and subcutaneous tissue, unspecified; E11.69 Type 2 diabetes mellitus with other specified complication; M86.68 Other chronic osteomyelitis, other site; E11.39 Type 2 diabetes mellitus with other diabetic ophthalmic complication; H42 Glaucoma in diseases classified elsewhere; G82.20 Paraplegia, unspecified; M19.90 Unspecified osteoarthritis, unspecified site; M62.3 Immobility syndrome (paraplegic); B95.2 Enterococcus as the cause of diseases classified elsewhere; Z87.891 Personal history of nicotine dependence; Z98.49 Cataract extraction status, unspecified eye; Z79.4 Long term (current) use of insulin; Z79.84 Long term (current) use of oral hypoglycemic drugs; Z79.899 Other long term (current) drug therapy ==

== ENCOUNTER → 2024-04-12 | Outpatient (CLI) | payer OTHER, MEDICAID | END | disposition home or self-care (01) | LOC: WOUNDCARE 03:25 | PROVIDERS: ATTEND Nurse Practitioner Family | DX: L89.153 Pressure ulcer of sacral region, stage 3 (principal); E11.622 Type 2 diabetes mellitus with other skin ulcer; L98.491 Non-pressure chronic ulcer of skin of other sites limited to breakdown of skin; L98.9 Disorder of the skin and subcutaneous tissue, unspecified; E11.69 Type 2 diabetes mellitus with other specified complication; M86.68 Other chronic osteomyelitis, other site; E11.39 Type 2 diabetes mellitus with other diabetic ophthalmic complication; H42 Glaucoma in diseases classified elsewhere; G82.20 Paraplegia, unspecified; M19.90 Unspecified osteoarthritis, unspecified site; M62.3 Immobility syndrome (paraplegic); B95.2 Enterococcus as the cause of diseases classified elsewhere; Z87.891 Personal history of nicotine dependence; Z98.49 Cataract extraction status, unspecified eye; Z79.4 Long term (current) use of insulin; Z79.84 Long term (current) use of oral hypoglycemic drugs; Z79.899 Other long term (current) drug therapy ==

== ENCOUNTER → 2024-04-26 | Outpatient (CLI) | payer OTHER, MEDICAID | END | disposition home or self-care (01) | LOC: WOUNDCARE 02:24 | PROVIDERS: ATTEND Nurse Practitioner Family | DX: L89.153 Pressure ulcer of sacral region, stage 3 (principal); E11.622 Type 2 diabetes mellitus with other skin ulcer; L98.491 Non-pressure chronic ulcer of skin of other sites limited to breakdown of skin; L98.9 Disorder of the skin and subcutaneous tissue, unspecified; E11.69 Type 2 diabetes mellitus with other specified complication; M86.68 Other chronic osteomyelitis, other site; E11.39 Type 2 diabetes mellitus with other diabetic ophthalmic complication; H42 Glaucoma in diseases classified elsewhere; G82.20 Paraplegia, unspecified; M19.90 Unspecified osteoarthritis, unspecified site; M62.3 Immobility syndrome (paraplegic); B95.2 Enterococcus as the cause of diseases classified elsewhere; Z87.891 Personal history of nicotine dependence; Z98.49 Cataract extraction status, unspecified eye; Z79.4 Long term (current) use of insulin; Z79.84 Long term (current) use of oral hypoglycemic drugs; Z79.899 Other long term (current) drug therapy ==

== ENCOUNTER → 2024-05-10 | Outpatient (CLI) | payer OTHER, MEDICAID | END | disposition home or self-care (01) | LOC: WOUNDCARE 02:17 | PROVIDERS: ATTEND Nurse Practitioner Family | DX: L89.153 Pressure ulcer of sacral region, stage 3 (principal); E11.622 Type 2 diabetes mellitus with other skin ulcer; L98.491 Non-pressure chronic ulcer of skin of other sites limited to breakdown of skin; L98.9 Disorder of the skin and subcutaneous tissue, unspecified; E11.69 Type 2 diabetes mellitus with other specified complication; M86.68 Other chronic osteomyelitis, other site; E11.39 Type 2 diabetes mellitus with other diabetic ophthalmic complication; H42 Glaucoma in diseases classified elsewhere; G82.20 Paraplegia, unspecified; M19.90 Unspecified osteoarthritis, unspecified site; M62.3 Immobility syndrome (paraplegic); B95.2 Enterococcus as the cause of diseases classified elsewhere; Z87.891 Personal history of nicotine dependence; Z98.49 Cataract extraction status, unspecified eye; Z79.4 Long term (current) use of insulin; Z79.84 Long term (current) use of oral hypoglycemic drugs; Z79.899 Other long term (current) drug therapy ==

== ENCOUNTER → 2024-06-12 | Outpatient (CLI) | payer OTHER, MEDICAID | END | disposition home or self-care (01) | LOC: WOUNDCARE 15:55 | PROVIDERS: ATTEND Nurse Practitioner Family | DX: L89.153 Pressure ulcer of sacral region, stage 3 (principal); E11.622 Type 2 diabetes mellitus with other skin ulcer; L98.491 Non-pressure chronic ulcer of skin of other sites limited to breakdown of skin; L98.9 Disorder of the skin and subcutaneous tissue, unspecified; E11.69 Type 2 diabetes mellitus with other specified complication; M86.68 Other chronic osteomyelitis, other site; E11.39 Type 2 diabetes mellitus with other diabetic ophthalmic complication; H42 Glaucoma in diseases classified elsewhere; G82.20 Paraplegia, unspecified; M19.90 Unspecified osteoarthritis, unspecified site; M62.3 Immobility syndrome (paraplegic); B95.2 Enterococcus as the cause of diseases classified elsewhere; Z87.891 Personal history of nicotine dependence; Z98.49 Cataract extraction status, unspecified eye; Z79.4 Long term (current) use of insulin; Z79.84 Long term (current) use of oral hypoglycemic drugs; Z79.899 Other long term (current) drug therapy ==

== ENCOUNTER → 2024-06-28 | Outpatient (CLI) | payer OTHER, MEDICAID | END | disposition home or self-care (01) | LOC: WOUNDCARE 03:25 | PROVIDERS: ATTEND Nurse Practitioner Family | DX: L89.153 Pressure ulcer of sacral region, stage 3 (principal); L98.9 Disorder of the skin and subcutaneous tissue, unspecified; E11.69 Type 2 diabetes mellitus with other specified complication; M86.68 Other chronic osteomyelitis, other site; E11.39 Type 2 diabetes mellitus with other diabetic ophthalmic complication; H42 Glaucoma in diseases classified elsewhere; B95.2 Enterococcus as the cause of diseases classified elsewhere; G82.20 Paraplegia, unspecified; M62.3 Immobility syndrome (paraplegic); M19.90 Unspecified osteoarthritis, unspecified site; Z87.891 Personal history of nicotine dependence; Z98.890 Other specified postprocedural states; Z79.84 Long term (current) use of oral hypoglycemic drugs; Z79.4 Long term (current) use of insulin ==

== ENCOUNTER → 2024-07-26 | Outpatient (CLI) | payer OTHER, MEDICAID | END | disposition home or self-care (01) | LOC: WOUNDCARE 01:00 | PROVIDERS: ATTEND Nurse Practitioner Family | DX: L89.153 Pressure ulcer of sacral region, stage 3 (principal); L98.9 Disorder of the skin and subcutaneous tissue, unspecified; E11.69 Type 2 diabetes mellitus with other specified complication; M86.68 Other chronic osteomyelitis, other site; E11.39 Type 2 diabetes mellitus with other diabetic ophthalmic complication; H42 Glaucoma in diseases classified elsewhere; M62.3 Immobility syndrome (paraplegic); M19.90 Unspecified osteoarthritis, unspecified site; B95.2 Enterococcus as the cause of diseases classified elsewhere; Z87.891 Personal history of nicotine dependence; Z98.890 Other specified postprocedural states; Z79.4 Long term (current) use of insulin; Z79.899 Other long term (current) drug therapy ==

== ENCOUNTER → 2024-08-08 | Outpatient (CLI) | payer OTHER, MEDICAID | END | disposition home or self-care (01) | LOC: WOUNDCARE 02:21 | PROVIDERS: ATTEND Nurse Practitioner Family | DX: L89.153 Pressure ulcer of sacral region, stage 3 (principal); E11.69 Type 2 diabetes mellitus with other specified complication; M86.68 Other chronic osteomyelitis, other site; B95.2 Enterococcus as the cause of diseases classified elsewhere; L98.9 Disorder of the skin and subcutaneous tissue, unspecified; G82.20 Paraplegia, unspecified; M62.3 Immobility syndrome (paraplegic); E11.39 Type 2 diabetes mellitus with other diabetic ophthalmic complication; H42 Glaucoma in diseases classified elsewhere; M19.90 Unspecified osteoarthritis, unspecified site; Z98.49 Cataract extraction status, unspecified eye; Z98.890 Other specified postprocedural states; Z87.891 Personal history of nicotine dependence; Z79.4 Long term (current) use of insulin; Z79.899 Other long term (current) drug therapy ==

== ENCOUNTER → 2024-08-23 | Outpatient (CLI) | payer OTHER, MEDICAID | END | disposition home or self-care (01) | LOC: WOUNDCARE 00:23 | PROVIDERS: ATTEND Nurse Practitioner Family | DX: L89.153 Pressure ulcer of sacral region, stage 3 (principal); E11.69 Type 2 diabetes mellitus with other specified complication; M86.68 Other chronic osteomyelitis, other site; L98.9 Disorder of the skin and subcutaneous tissue, unspecified; G82.20 Paraplegia, unspecified; M62.3 Immobility syndrome (paraplegic); B95.2 Enterococcus as the cause of diseases classified elsewhere; E11.39 Type 2 diabetes mellitus with other diabetic ophthalmic complication; H42 Glaucoma in diseases classified elsewhere; M19.90 Unspecified osteoarthritis, unspecified site; Z98.49 Cataract extraction status, unspecified eye; Z98.890 Other specified postprocedural states; Z87.891 Personal history of nicotine dependence; Z79.4 Long term (current) use of insulin; Z79.84 Long term (current) use of oral hypoglycemic drugs; Z79.899 Other long term (current) drug therapy ==

== ENCOUNTER → 2024-09-06 | Outpatient (CLI) | payer OTHER, MEDICAID | END | disposition home or self-care (01) | LOC: WOUNDCARE 00:43 | PROVIDERS: ATTEND Nurse Practitioner Family | DX: L89.153 Pressure ulcer of sacral region, stage 3 (principal); L98.9 Disorder of the skin and subcutaneous tissue, unspecified; E11.69 Type 2 diabetes mellitus with other specified complication; M86.68 Other chronic osteomyelitis, other site; E11.39 Type 2 diabetes mellitus with other diabetic ophthalmic complication; H42 Glaucoma in diseases classified elsewhere; G82.20 Paraplegia, unspecified; M62.3 Immobility syndrome (paraplegic); M19.90 Unspecified osteoarthritis, unspecified site; B95.2 Enterococcus as the cause of diseases classified elsewhere; Z79.84 Long term (current) use of oral hypoglycemic drugs; Z79.4 Long term (current) use of insulin; Z79.899 Other long term (current) drug therapy; Z98.49 Cataract extraction status, unspecified eye; Z98.890 Other specified postprocedural states; Z87.891 Personal history of nicotine dependence ==

== ENCOUNTER → 2024-09-18 | Outpatient (CLI) | payer OTHER, MEDICAID | END | disposition home or self-care (01) | LOC: WOUNDCARE 02:37 | PROVIDERS: ATTEND Nurse Practitioner Family | DX: L89.153 Pressure ulcer of sacral region, stage 3 (principal); E11.69 Type 2 diabetes mellitus with other specified complication; M86.68 Other chronic osteomyelitis, other site; L98.9 Disorder of the skin and subcutaneous tissue, unspecified; E11.39 Type 2 diabetes mellitus with other diabetic ophthalmic complication; H42 Glaucoma in diseases classified elsewhere; G82.20 Paraplegia, unspecified; B95.2 Enterococcus as the cause of diseases classified elsewhere; M62.3 Immobility syndrome (paraplegic); M19.90 Unspecified osteoarthritis, unspecified site; Z87.891 Personal history of nicotine dependence; Z98.890 Other specified postprocedural states; Z79.4 Long term (current) use of insulin; Z79.84 Long term (current) use of oral hypoglycemic drugs; Z79.899 Other long term (current) drug therapy ==

== ENCOUNTER → 2024-10-11 | Outpatient (CLI) | payer OTHER, MEDICAID | END | disposition home or self-care (01) | LOC: WOUNDCARE 01:37 | PROVIDERS: ATTEND Nurse Practitioner Family | DX: L89.153 Pressure ulcer of sacral region, stage 3 (principal); E11.69 Type 2 diabetes mellitus with other specified complication; M86.68 Other chronic osteomyelitis, other site; E11.39 Type 2 diabetes mellitus with other diabetic ophthalmic complication; H40.9 Unspecified glaucoma; B95.2 Enterococcus as the cause of diseases classified elsewhere; L98.9 Disorder of the skin and subcutaneous tissue, unspecified; G82.20 Paraplegia, unspecified; M62.3 Immobility syndrome (paraplegic); M19.90 Unspecified osteoarthritis, unspecified site; Z98.890 Other specified postprocedural states; Z87.891 Personal history of nicotine dependence; Z79.4 Long term (current) use of insulin; Z79.84 Long term (current) use of oral hypoglycemic drugs; Z79.899 Other long term (current) drug therapy ==

== ENCOUNTER → 2024-10-25 | Outpatient (CLI) | payer OTHER, MEDICAID | LOC: WOUNDCARE 00:41 | PROVIDERS: ATTEND Nurse Practitioner Family | DX: L89.153 Pressure ulcer of sacral region, stage 3 (principal); L98.9 Disorder of the skin and subcutaneous tissue, unspecified; E11.69 Type 2 diabetes mellitus with other specified complication; M86.68 Other chronic osteomyelitis, other site; E11.39 Type 2 diabetes mellitus with other diabetic ophthalmic complication; H42 Glaucoma in diseases classified elsewhere; B95.2 Enterococcus as the cause of diseases classified elsewhere; G82.20 Paraplegia, unspecified; M62.3 Immobility syndrome (paraplegic); M19.90 Unspecified osteoarthritis, unspecified site; Z87.891 Personal history of nicotine dependence; Z98.890 Other specified postprocedural states; Z79.84 Long term (current) use of oral hypoglycemic drugs; Z79.4 Long term (current) use of insulin; Z79.899 Other long term (current) drug therapy ==

== ENCOUNTER → 2024-11-11 | Outpatient (CLI) | payer OTHER, MEDICAID | END | disposition home or self-care (01) | LOC: WOUNDCARE 01:01 | PROVIDERS: ATTEND Nurse Practitioner Family | DX: L89.153 Pressure ulcer of sacral region, stage 3 (principal); L98.8 Other specified disorders of the skin and subcutaneous tissue; E11.69 Type 2 diabetes mellitus with other specified complication; M86.68 Other chronic osteomyelitis, other site; M62.3 Immobility syndrome (paraplegic); M19.90 Unspecified osteoarthritis, unspecified site; G82.20 Paraplegia, unspecified; B95.2 Enterococcus as the cause of diseases classified elsewhere; H40.9 Unspecified glaucoma; Z98.49 Cataract extraction status, unspecified eye; Z98.890 Other specified postprocedural states; Z87.891 Personal history of nicotine dependence; Z79.84 Long term (current) use of oral hypoglycemic drugs; Z79.4 Long term (current) use of insulin; Z79.899 Other long term (current) drug therapy ==

== ENCOUNTER → 2024-12-10 | Outpatient (CLI) | payer OTHER, MEDICAID | END | disposition home or self-care (01) | LOC: WOUNDCARE 02:18 | PROVIDERS: ATTEND Nurse Practitioner Family | DX: L89.153 Pressure ulcer of sacral region, stage 3 (principal); L98.8 Other specified disorders of the skin and subcutaneous tissue; E11.69 Type 2 diabetes mellitus with other specified complication; M86.68 Other chronic osteomyelitis, other site; E11.39 Type 2 diabetes mellitus with other diabetic ophthalmic complication; H40.9 Unspecified glaucoma; G82.20 Paraplegia, unspecified; B95.2 Enterococcus as the cause of diseases classified elsewhere; M62.3 Immobility syndrome (paraplegic); M19.90 Unspecified osteoarthritis, unspecified site; Z98.49 Cataract extraction status, unspecified eye; Z98.890 Other specified postprocedural states; Z87.891 Personal history of nicotine dependence; Z79.4 Long term (current) use of insulin; Z79.84 Long term (current) use of oral hypoglycemic drugs; Z79.899 Other long term (current) drug therapy ==

== ENCOUNTER → 2024-12-24 | Outpatient (CLI) | payer OTHER, MEDICAID | END | disposition home or self-care (01) | LOC: WOUNDCARE 01:42 | PROVIDERS: ATTEND Nurse Practitioner Family | DX: L89.153 Pressure ulcer of sacral region, stage 3 (principal); L98.9 Disorder of the skin and subcutaneous tissue, unspecified; B95.2 Enterococcus as the cause of diseases classified elsewhere; E11.69 Type 2 diabetes mellitus with other specified complication; M86.68 Other chronic osteomyelitis, other site; M19.90 Unspecified osteoarthritis, unspecified site; E11.39 Type 2 diabetes mellitus with other diabetic ophthalmic complication; H42 Glaucoma in diseases classified elsewhere; M62.3 Immobility syndrome (paraplegic); G82.20 Paraplegia, unspecified; Z98.49 Cataract extraction status, unspecified eye; Z98.890 Other specified postprocedural states; Z87.891 Personal history of nicotine dependence; Z79.4 Long term (current) use of insulin; Z79.84 Long term (current) use of oral hypoglycemic drugs; Z79.899 Other long term (current) drug therapy ==

== ENCOUNTER → 2025-01-31 | Outpatient (CLI) | payer OTHER, MEDICAID ==
[2025-01-31 14:35] LABS: BASO # 0.0 10*3/uL (0.0-0.1); BASO % 0.2 % (0.0-1.0); EOS # 0.1 10*3/uL (0.0-0.4); EOS % 1.5 % (1.0-4.0); MEAN CELL VOLUME 88.3 fl (80.0-94.0); MEAN CORPUSCULAR HGB 27.0 pg (27.0-31.0); MEAN PLATELET VOLUME 10.6 fl (9.6-12.3); MONO # 0.6 10*3/uL (0.1-1.0); MONO % 6.8 % (3.0-9.0); NEUT # 6.6 10*3/uL (2.3-7.9); NEUT % 75.7 % (47.0-73.0); NUCLEATED RED BLOOD CELL 0.0 % (0.0-0.0); NUCLEATED RED BLOOD CELL 0.0 10*3/uL (0.0-0.0); PLATELET COUNT AUTOMATED 233 10*3/uL (130-400); RED CELL DISTRI WIDTH 15.9 % (0-14.5)
== END | disposition home or self-care (01) ==
LOC: WOUNDCARE 01:14 → LAB 03:46
PROVIDERS: ATTEND Nurse Practitioner Primary Care
DX: L89.154 Pressure ulcer of sacral region, stage 4 (principal); L98.9 Disorder of the skin and subcutaneous tissue, unspecified; B95.2 Enterococcus as the cause of diseases classified elsewhere; E11.69 Type 2 diabetes mellitus with other specified complication; M86.68 Other chronic osteomyelitis, other site; G82.20 Paraplegia, unspecified; M62.3 Immobility syndrome (paraplegic); M19.90 Unspecified osteoarthritis, unspecified site; Z79.4 Long term (current) use of insulin; Z79.84 Long term (current) use of oral hypoglycemic drugs; Z79.899 Other long term (current) drug therapy

== ENCOUNTER → 2025-03-12 | Outpatient (CLI) | payer OTHER, MEDICAID | END | disposition home or self-care (01) | LOC: WOUNDCARE 01:33 | PROVIDERS: ATTEND Nurse Practitioner Family | DX: L89.154 Pressure ulcer of sacral region, stage 4 (principal); E11.622 Type 2 diabetes mellitus with other skin ulcer; L98.495 Non-pressure chronic ulcer of skin of other sites with muscle involvement without evidence of necrosis; E11.69 Type 2 diabetes mellitus with other specified complication; M86.68 Other chronic osteomyelitis, other site; L98.9 Disorder of the skin and subcutaneous tissue, unspecified; B95.2 Enterococcus as the cause of diseases classified elsewhere; G82.20 Paraplegia, unspecified; M62.3 Immobility syndrome (paraplegic); E11.39 Type 2 diabetes mellitus with other diabetic ophthalmic complication; H42 Glaucoma in diseases classified elsewhere; M19.90 Unspecified osteoarthritis, unspecified site; Z87.891 Personal history of nicotine dependence; Z98.49 Cataract extraction status, unspecified eye ==

== ENCOUNTER → 2025-03-26 | Outpatient (CLI) | payer OTHER, MEDICAID | END | disposition home or self-care (01) | LOC: WOUNDCARE 04:54 | PROVIDERS: ATTEND Nurse Practitioner Family | DX: L89.154 Pressure ulcer of sacral region, stage 4 (principal); L98.9 Disorder of the skin and subcutaneous tissue, unspecified; E11.39 Type 2 diabetes mellitus with other diabetic ophthalmic complication; H42 Glaucoma in diseases classified elsewhere; E11.69 Type 2 diabetes mellitus with other specified complication; M86.68 Other chronic osteomyelitis, other site; M62.3 Immobility syndrome (paraplegic); M19.90 Unspecified osteoarthritis, unspecified site; G82.20 Paraplegia, unspecified; B95.2 Enterococcus as the cause of diseases classified elsewhere; Z98.49 Cataract extraction status, unspecified eye; Z98.890 Other specified postprocedural states; Z87.891 Personal history of nicotine dependence; Z79.4 Long term (current) use of insulin; Z79.899 Other long term (current) drug therapy ==

== ENCOUNTER → 2025-04-16 | Outpatient (CLI) | payer OTHER, MEDICAID | END | disposition home or self-care (01) | LOC: WOUNDCARE 03:55 | PROVIDERS: ATTEND Nurse Practitioner Family | DX: L89.154 Pressure ulcer of sacral region, stage 4 (principal); E11.69 Type 2 diabetes mellitus with other specified complication; M86.68 Other chronic osteomyelitis, other site; B95.2 Enterococcus as the cause of diseases classified elsewhere; L98.9 Disorder of the skin and subcutaneous tissue, unspecified; G82.20 Paraplegia, unspecified; M62.3 Immobility syndrome (paraplegic); E11.39 Type 2 diabetes mellitus with other diabetic ophthalmic complication; H42 Glaucoma in diseases classified elsewhere; M19.90 Unspecified osteoarthritis, unspecified site; Z87.891 Personal history of nicotine dependence; Z98.49 Cataract extraction status, unspecified eye ==

== ENCOUNTER → 2025-04-30 | Outpatient (CLI) | payer OTHER, MEDICAID | END | disposition home or self-care (01) | LOC: WOUNDCARE 01:52 | PROVIDERS: ATTEND Nurse Practitioner Family | DX: L89.154 Pressure ulcer of sacral region, stage 4 (principal); L98.9 Disorder of the skin and subcutaneous tissue, unspecified; B95.2 Enterococcus as the cause of diseases classified elsewhere; E11.69 Type 2 diabetes mellitus with other specified complication; M86.68 Other chronic osteomyelitis, other site; G82.20 Paraplegia, unspecified; M62.3 Immobility syndrome (paraplegic); M19.90 Unspecified osteoarthritis, unspecified site; Z87.891 Personal history of nicotine dependence; Z98.890 Other specified postprocedural states; Z79.4 Long term (current) use of insulin; Z79.84 Long term (current) use of oral hypoglycemic drugs; Z79.899 Other long term (current) drug therapy ==

== ENCOUNTER → 2025-05-07 | Outpatient (CLI) | payer OTHER, MEDICAID | END | disposition home or self-care (01) | LOC: WOUNDCARE 02:15 | PROVIDERS: ATTEND Nurse Practitioner Family | DX: L89.154 Pressure ulcer of sacral region, stage 4 (principal); E11.622 Type 2 diabetes mellitus with other skin ulcer; L98.492 Non-pressure chronic ulcer of skin of other sites with fat layer exposed; E11.69 Type 2 diabetes mellitus with other specified complication; M86.68 Other chronic osteomyelitis, other site; B95.2 Enterococcus as the cause of diseases classified elsewhere; L98.9 Disorder of the skin and subcutaneous tissue, unspecified; G82.20 Paraplegia, unspecified; M62.3 Immobility syndrome (paraplegic); E11.39 Type 2 diabetes mellitus with other diabetic ophthalmic complication; H42 Glaucoma in diseases classified elsewhere; M19.90 Unspecified osteoarthritis, unspecified site; Z87.891 Personal history of nicotine dependence; Z98.49 Cataract extraction status, unspecified eye ==

== ENCOUNTER → 2025-05-14 | Outpatient (CLI) | payer OTHER, MEDICAID | END | disposition home or self-care (01) | LOC: WOUNDCARE 00:05 | PROVIDERS: ATTEND Nurse Practitioner Family | DX: L89.154 Pressure ulcer of sacral region, stage 4 (principal); E11.69 Type 2 diabetes mellitus with other specified complication; M86.68 Other chronic osteomyelitis, other site; L98.9 Disorder of the skin and subcutaneous tissue, unspecified; G82.20 Paraplegia, unspecified; M62.3 Immobility syndrome (paraplegic); E11.39 Type 2 diabetes mellitus with other diabetic ophthalmic complication; H42 Glaucoma in diseases classified elsewhere; M19.90 Unspecified osteoarthritis, unspecified site; Z98.49 Cataract extraction status, unspecified eye ==

== ENCOUNTER → 2025-05-19 | Outpatient (CLI) | payer OTHER, MEDICAID | END | disposition home or self-care (01) | LOC: WOUNDCARE 02:55 | PROVIDERS: ATTEND Nurse Practitioner Family | DX: L89.154 Pressure ulcer of sacral region, stage 4 (principal); E11.69 Type 2 diabetes mellitus with other specified complication; M86.68 Other chronic osteomyelitis, other site; E11.39 Type 2 diabetes mellitus with other diabetic ophthalmic complication; H42 Glaucoma in diseases classified elsewhere; B95.2 Enterococcus as the cause of diseases classified elsewhere; L98.9 Disorder of the skin and subcutaneous tissue, unspecified; G82.20 Paraplegia, unspecified; M62.3 Immobility syndrome (paraplegic); M19.90 Unspecified osteoarthritis, unspecified site; Z87.891 Personal history of nicotine dependence; Z98.49 Cataract extraction status, unspecified eye ==

== ENCOUNTER → 2025-05-28 | Outpatient (CLI) | payer OTHER, MEDICAID | END | disposition home or self-care (01) | LOC: WOUNDCARE 02:42 | PROVIDERS: ATTEND Nurse Practitioner Family | DX: L89.154 Pressure ulcer of sacral region, stage 4 (principal); E11.69 Type 2 diabetes mellitus with other specified complication; M86.68 Other chronic osteomyelitis, other site; B95.2 Enterococcus as the cause of diseases classified elsewhere; L98.9 Disorder of the skin and subcutaneous tissue, unspecified; G82.20 Paraplegia, unspecified; M62.3 Immobility syndrome (paraplegic); E11.39 Type 2 diabetes mellitus with other diabetic ophthalmic complication; H42 Glaucoma in diseases classified elsewhere; M19.90 Unspecified osteoarthritis, unspecified site; Z87.891 Personal history of nicotine dependence; Z98.49 Cataract extraction status, unspecified eye ==

== ENCOUNTER → 2025-06-04 | Outpatient (CLI) | payer OTHER, MEDICAID | END | disposition home or self-care (01) | LOC: WOUNDCARE 01:38 | PROVIDERS: ATTEND Nurse Practitioner Family | DX: L89.154 Pressure ulcer of sacral region, stage 4 (principal); L98.9 Disorder of the skin and subcutaneous tissue, unspecified; B95.2 Enterococcus as the cause of diseases classified elsewhere; E11.69 Type 2 diabetes mellitus with other specified complication; M86.68 Other chronic osteomyelitis, other site; M62.3 Immobility syndrome (paraplegic); M19.90 Unspecified osteoarthritis, unspecified site; G82.20 Paraplegia, unspecified; Z98.890 Other specified postprocedural states; Z79.4 Long term (current) use of insulin; Z79.84 Long term (current) use of oral hypoglycemic drugs; Z79.899 Other long term (current) drug therapy ==

== ENCOUNTER → 2025-06-11 | Outpatient (CLI) | payer OTHER, MEDICAID | LOC: WOUNDCARE 00:30 | PROVIDERS: ATTEND Nurse Practitioner Family | DX: L89.154 Pressure ulcer of sacral region, stage 4 (principal); L98.9 Disorder of the skin and subcutaneous tissue, unspecified; E11.69 Type 2 diabetes mellitus with other specified complication; M86.68 Other chronic osteomyelitis, other site; B95.2 Enterococcus as the cause of diseases classified elsewhere; G82.20 Paraplegia, unspecified; M62.3 Immobility syndrome (paraplegic); E11.39 Type 2 diabetes mellitus with other diabetic ophthalmic complication; H40.9 Unspecified glaucoma; M19.90 Unspecified osteoarthritis, unspecified site; Z98.49 Cataract extraction status, unspecified eye; Z98.890 Other specified postprocedural states; Z87.891 Personal history of nicotine dependence; Z79.84 Long term (current) use of oral hypoglycemic drugs; Z79.4 Long term (current) use of insulin; Z79.899 Other long term (current) drug therapy ==

== ENCOUNTER → 2025-06-23 | Outpatient (CLI) | payer OTHER, MEDICAID | END | disposition home or self-care (01) | LOC: WOUNDCARE 02:14 | PROVIDERS: ATTEND Nurse Practitioner Family | DX: L89.154 Pressure ulcer of sacral region, stage 4 (principal); E11.69 Type 2 diabetes mellitus with other specified complication; M86.68 Other chronic osteomyelitis, other site; B95.2 Enterococcus as the cause of diseases classified elsewhere; L98.9 Disorder of the skin and subcutaneous tissue, unspecified; G82.20 Paraplegia, unspecified; M62.3 Immobility syndrome (paraplegic); E11.39 Type 2 diabetes mellitus with other diabetic ophthalmic complication; H42 Glaucoma in diseases classified elsewhere; M19.90 Unspecified osteoarthritis, unspecified site; Z98.49 Cataract extraction status, unspecified eye ==